=== PATIENT | female | born 1960 | race Two or more races ===

== ENCOUNTER 2021-07-13 15:50 | Outpatient (REF) | payer OTHER, SELFPAY ==
--- NOTE | ~2021-07-13 | XR_ITS ---
EXAMINATION: XR HAND, LEFT CLINICAL INFORMATION: Sprain COMPARISON: None TECHNIQUE: PA, lateral, and oblique views of the left hand. FINDINGS: Bone alignment is normal. No fracture or dislocation is seen. There is arthritis at the DIP joints of the second and third fingers with joint space narrowing and osteophyte formation. Soft tissues are unremarkable. 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
== END 2021-07-13 15:51 | disposition home or self-care (01) ==
LOC: HO.XRAY 15:50
PROVIDERS: PCP Internal Medicine; Visit Provider Internal Medicine
DX: S63.631D Sprain of interphalangeal joint of left index finger, subsequent encounter (principal)
CPT/HCPCS: 73130

== ENCOUNTER 2023-12-17 21:47 | Outpatient (REF) | payer MEDICAID, SELFPAY ==
[2023-12-19 19:53] LABS: C. trachomatis RNA TMA NOT DETECTED (NOT DETECTED); N. gonorrhoeae RNA TMA NOT DETECTED (NOT DETECTED)
== END 2023-12-17 21:48 | disposition home or self-care (01) ==
LOC: HO.HHCLNP 21:47
PROVIDERS: Visit Provider Emergency Medicine
DX: R30.0 Dysuria (principal)
CPT/HCPCS: 36415; 81513; 87086; 87491; 87591

== ENCOUNTER 2024-02-16 12:29 | Outpatient (REF) | payer MEDICAID, SELFPAY ==
[2024-02-16 14:34] LABS: MANUAL DIFF FLAG NO
[2024-02-16 14:43] LABS: Basophils Absolute Auto 0.1 X10*3/uL (0.0-0.2); Basophils Percent Auto 1.6 % (0-2); Eosinophils Absolute Auto 0.2 X10*3/uL (0.0-0.4); Eosinophils Percent Auto 3.1 % (0-4); Hematocrit 43.6 % (37.0-47.0); Hemoglobin 13.9 g/dl (12.0-16.0); Imm Gran Abs Auto 0.01 X10*3/uL (0.00-0.03); Imm Gran Pct Auto 0.2 % (0.0-0.4); Lymphocytes Absolute Auto 3.4 X10*3/uL (1.2-4.9); Lymphocytes Percent Auto 53.8 % (20-40); Mean Corpuscular HGB Conc 31.9 g/dl (31.0-35.0); Mean Corpuscular Hemoglobin 29.2 pg (27.0-33.0); Mean Corpuscular Volume 91.6 fL (80.0-98.0); Mean Platelet Volume 10.6 fL (9.4-12.3); Monocytes Absolute Auto 0.4 X10*3/uL (0.1-1.2); Monocytes Percent Auto 6.4 % (2-11); Neutrophils Absolute Auto 2.2 x10*3/uL (2.0-8.3); Neutrophils Percent Auto 34.9 % (45-73); Platelet Count 264 X10*3/uL (160-400); Red Blood Count 4.76 X10*6/uL (4.20-5.50); Red Cell Distribution Width 14.2 % (11.0-16.0); White Blood Count 6.4 X10*3/uL (4.8-10.8)
[2024-02-16 15:01] LABS: Alanine Aminotransferase 12 U/L (0-31); Albumin Level 4.4 g/dL (3.5-5.0); Alkaline Phosphatase 93 U/L (39-117); Anion Gap 15 (12-20); Aspartate Amino Transferase 20 U/L (5-31); Bilirubin Total 0.3 mg/dL (0.0-1.0); Blood Urea Nitrogen 15 mg/dL (9-16); Calcium 10.2 mg/dL (8.4-10.2); Carbon Dioxide 26 mmol/L (22-29); Chloride 106 mmol/L (96-108); Cholesterol 209 mg/dL (<200); Estimated Glomerular Filt Rate > 60; Glucose Random 83 mg/dL (60-115); HDL Cholesterol 61 mg/dL (>40); LDL Cholesterol Calculated 117 mg/dL (<100); Potassium 4.5 mmol/L (3.3-5.1); Sodium 142 mmol/L (135-145); Total Protein 7.7 g/dL (6.5-8.0); Triglycerides 157 mg/dL (<150)
[2024-02-16 15:19] LABS: TSH reflex Free T4 1.59 uIU/mL (0.32-4.0); Vitamin D 25-OH Total 17.1 ng/mL (>30)
== END 2024-02-16 12:30 | disposition home or self-care (01) ==
LOC: HO.CHCLDS 12:29
PROVIDERS: Visit Provider Internal Medicine
DX: I10 Essential (primary) hypertension (principal)
CPT/HCPCS: 36415; 80053; 80061; 82306; 84443; 85025

== ENCOUNTER 2024-05-23 11:46 | Emergency (ER) | payer MEDICAID, SELFPAY ==
--- NOTE | ~2024-05-23 | XR_ITS ---
EXAMINATION: XR LUMBAR SPINE CLINICAL INFORMATION: Reason for Exam low back pain COMPARISON: None TECHNIQUE: Frontal lateral and coned-down L5-S1 frontal lateral, total of 3 views FINDINGS: Five [id number] lumbar vertebrae were identified maintaining normal height and alignments. Narrowing of intervertebral disc spaces suggest underlying degenerative disc disease. Diffuse bone cortical thinning suggests demineralization, this can be more accurately measured on DEXA exam . Paravertebral soft tissues are unremarkable. There are radiolucencies, most likely superimposed bowel gas.. No radiographic evidence of osteolytic or osteoblastic lesions. XR/XR lumbar spine 2-3V IMPRESSION: No fracture. Narrowing of intervertebral disc spaces suggest underlying degenerative disc disease. . Diffuse bone cortical thinning suggests demineralization, this can be more accurately measured on DEXA exam ..
--- NOTE | 2024-05-23 11:58 | ED.BACK ---
HPI - Back Pain/Injury General Chief Complaint: Back Pain/Injury Stated Complaint: back pain radiating to feet Time Seen by Provider: 05/23/24 13:09 Source: patient and RN notes reviewed Mode of arrival: ambulatory Limitations: no limitations History of Present Illness ED Provider: Robyn Mccullough PA-C HPI Narrative: This is a 63-year-old female who presents emergency department with complaints of low back pain since yesterday. Patient denies any recent trauma or injury. She states that she is a very active person and has a lot of work around the house. She states that the pain worsens with positional changes. She also states that she has had bilateral foot coldness. She denies any urinary or bowel incontinence or retention. No saddle anesthesia. No urinary symptoms. She had a recent urinary tract infection that was treated with an antibiotic. Denies any chest pain, shortness breath, fevers, chills, abdominal pain, nausea, vomiting or diarrhea. No other complaints or concerns at this time. Related Data Previous Rx's ?Medication ?Instructions ?Recorded acetaminophen 500 mg tablet 1,000 mg (2 x 500 mg) PO Q8H PRN 05/23/24 (Tylenol Extra Strength) pain #30 tabs lidocaine 5 % topical patch 1 patch topical DAILY #30 ea 05/23/24 (Lidoderm) Allergies Allergy/AdvReac Type Severity Reaction Status Date / Time No Known Allergies Allergy Mild NONE Verified 05/23/24 12:11 Review of Systems Review of Systems: Yes all other systems are reviewed and are negative Constitutional: Constitutional: Reports as per [facility] Past Medical History Attestation statement: The following information was validated with the patient. Social History Social History Unable to assess alcohol history related to: Unknown Smoked in Last 30 Days: No Use of substances other than those prescribed or required for medical reasons: Unknown Advance Directives: No Advance Directives Information Provided: Yes Do you have a plan to hurt others: No Plan Patient : No Physical Exam Vital Signs: Vital Signs: Last Vital Signs Temp 98.3 F 05/23/24 12:08 Pulse 70 05/23/24 12:08 Resp 16 05/23/24 12:08 BP 146/90 H 05/23/24 12:08 Pulse Ox 98 05/23/24 12:08 O2 Del Method Room Air 05/23/24 12:08 BMI result Body Mass Index 20.2 Const: General: cooperative, comfortable and no acute distress Orientation/consciousness: patient oriented x3 Limitations: no limitations HEENT: Head: Yes normal to inspection, Yes normocephalic and Yes atraumatic Ears: hearing grossly normal bilaterally General nose exam: Normal external nose present Face and sinus: Yes normal facial exam Mouth: Normal oral and palatal mucosa present, oropharynx normal and moist mucous membranes Throat: Yes posterior oropharynx normal Eyes: General: appearance normal, both eyes and all related structures Eyelids: Yes eyelids normal Conjunctivae: conjunctivae normal Sclerae: sclerae normal Pupils: Equal, round and reactive pupils present EOM: EOMs intact bilaterally Neck: Neck: Yes normal visual inspection, Yes full ROM and Yes no lymphadenopathy Lymphatic: no lymphadenopathy noted Chest: Chest palpation & inspection: normal inspection of the chest Resp: Effort & Inspection: normal respiratory effort and able to speak in complete sentences Auscultation: clear to auscultation bilaterally, no crackles, no rales, no rhonchi and no wheezes Cardio: Rate: regular rate Rhythm: regular rhythm Heart sounds: S1 normal heart sound present and S2 normal heart sound present GI: Inspection: Yes normal to inspection : General: Yes no CVA tenderness Back/Spine/Pelvis: Other: No midline spine tenderness, no paraspinous muscle tenderness. DTRs are 2+, distal sensation circulation intact. Bilateral feet are slightly chilled bilaterally, however she has good capillary refill, less than 2 seconds, sensation intact, DP pulse, popliteal pulse, and femoral pulses are strong, equal bilaterally. No calf tenderness Back: no CVA tenderness Skin: General skin exam: no rashes or lesions noted Trauma: no lacerations or abrasions Wounds: no wounds Neuro: General: patient oriented x3 and moves all extremities Cranial nerves: Yes Equal, round and reactive pupils present Extrem: General: Yes normal to inspection Right upper extremity: normal to inspection Left upper extremity: normal to inspection Right lower extremity: normal to inspection Left lower extremity: normal to inspection Course Course Course Narrative: This is a Rapid Medical Exam performed in triage by Magalie Brown PA-C. Full HPI, ROS and PE to be performed by primary ED provider. 63 year-old F w/ no sig PMHx presenting to the ED c/o right sided low back pain and cold feet x yesterday, worsening today. denies injury/fall, urinary sx. PE: +R lumbar MSK ttp. distal pulses intact/ ambulating w/steady gait Plan: UA, XR Medical Decision Making Medical Decision Making [facility] Narrative: This is a 63-year-old female who presents emergency department with complaints of back pain. On arrival, blood pressure mildly elevated at 140 6/90, all other vital signs within normal limits. Lumbar spine nontender, she is ambulatory with steady gait. This patient presents with back pain most consistent with lumbago. Differential diagnoses includes lumbago versus musculoskeletal spasm / strain versus sciatica.No back pain red flags on history or physical. Presentation not consistent with malignancy (lack of history of malignancy, lack of B symptoms), fracture (no trauma, no bony tenderness to palpation), cauda equina syndrome (no bowel or urinary incontinence/retention, no saddle anesthesia, no distal weakness), pyelonephritis (afebrile, no CVAT, no urinary symptoms). X-ray showing underlying degenerative disc disease as well as the mineralization, I discussed this finding with patient and [id number] at bedside, they were follow-up with PCP. She has good pulses, bilateral sensation, and capillary refills intact. Discussed strict return precautions. She understands agrees with plan. Patient stable for discharge. Differential Diagnosis Differential Diagnoses: The differential diagnosis associated with the presentation includes See above Lab Data [facility] Lab Attestation statement: I reviewed the patient's lab results. Labs: Lab Results 05/23/24 Range/Units 13:10 Urine Color Dark Yellow Urine Appearance Clear Urine pH 5.5 (5.0-9.0) Ur Specific [place] >= 1.030 H (1.005-1.025) Urine Protein Trace (Neg-Trace) mg/dL Urine Glucose (UA) Negative (Negative) mg/dL Urine Ketones Trace (Negative) mg/dL Urine Blood Negative (Negative) Urine Nitrite Negative (Negative) Ur Leukocyte Esterase Negative (Negative) Radiology Impression Discussion of test interpretation with radiology: I have reviewed the radiologist's reading. Radiologist Impression: EXAMINATION: XR LUMBAR SPINE CLINICAL INFORMATION: Reason for Exam low back pain COMPARISON: None TECHNIQUE: Frontal lateral and coned-down L5-S1 frontal lateral, total of 3 views FINDINGS: Five [id number] lumbar vertebrae were identified maintaining normal height and alignments. Narrowing of intervertebral disc spaces suggest underlying degenerative disc disease. Diffuse bone cortical thinning suggests demineralization, this can be more accurately measured on DEXA exam . Paravertebral soft tissues are unremarkable. There are radiolucencies, most likely superimposed bowel gas.. No radiographic evidence of osteolytic or osteoblastic lesions. XR/XR lumbar spine 2-3V IMPRESSION: No fracture. Narrowing of intervertebral disc spaces suggest underlying degenerative disc disease. . Diffuse bone cortical thinning suggests demineralization, this can be more accurately measured on DEXA exam .. Dictated By: Juan David Valdez MD Discharge Plan Discharge Clinical Impression: Back pain, Degenerative disc disease, lumbar Patient Disposition: Home, Self-Care Instructions: Back Pain (ED) Additional Instructions: You were seen in the emergency department due to back pain. Your x-ray shows degenerative disc disease. This also shows demineralization, I am recommending that you follow-up with your primary care physician as you may need to have a DEXA scan performed for further assessment. Drink plenty of fluids get plenty of rest. You may take Tylenol as needed for pain. You may also use Lidoderm patches. Your urine sample did not show a urinary tract infection. We are sending your urine out for further testing, we will call you if you have any abnormal results. If any new or worsening symptoms occur including but not limited to chest pain, shortness breath, worsening back pain, numbness or tingling, weakness, please return for re-evaluation. Prescriptions: New acetaminophen [Tylenol Extra Strength] 500 mg tablet 1,000 mg PO Q8H PRN (Reason: pain) Qty: 30 0RF lidocaine [Lidoderm] 5 % adhesive patch,medicated 1 patch topical DAILY Qty: 30 0RF Rx Instructions: leave on most painful area for up to 12 hrs Print Language: Frisian
[2024-05-23 12:08] VITALS: BP 146/90; PULSE 70; RESP 16; TEMP 36.8; O2SAT 98; BMI 20.2
[2024-05-23 13:18] LABS: Appearance Urine Clear; Color Urine Dark Yellow; Glucose Urine UA Negative (Negative); Leukocyte Esterase Urine Negative (Negative); Nitrite Urine Negative (Negative); PH 5.5 (5.0-9.0); Specific Gravity - Urine >= 1.030 (1.005-1.025); Urine Blood Negative (Negative); Urine Ketones Trace mg/dL (Negative); Urine Protein Trace mg/dL (Neg-Trace)
[2024-05-23 14:41] VITALS: BP 159/88; PULSE 57; RESP 16; TEMP 36.5; O2SAT 100
== END 2024-05-23 14:43 | disposition home or self-care (01) ==
PROVIDERS: Physician Assistant; Emergency Provider Emergency Medicine; PCP Internal Medicine
DX: M51.36 Other intervertebral disc degeneration, lumbar region (principal); R03.0 Elevated blood-pressure reading, without diagnosis of hypertension
CPT/HCPCS: 72100; 81003; 99283; 99284

== ENCOUNTER 2024-06-18 09:00 | Outpatient (REF) | payer MEDICAID, SELFPAY ==
--- NOTE | ~2024-06-18 | MM_ITS ---
EXAMINATION: BONE DENSITOMETRY CLINICAL INDICATION: Osteoporosis. COMPARISON: This is the patient's baseline examination. TECHNIQUE: Using a [employer] DXA System (software version: 13.1) manufactured by [employer], dual-energy x-ray absorptiometry was performed of the lumbar spine and left hip. The images are of good technical quality. Summary results are attached. FINDINGS: LEFT FEMUR, NECK: BMD 0.724 g/cm2, Z-score -0.5, T-score -2.3, osteopenia. LEFT FEMUR, TOTAL: BMD 0.688 g/cm2, Z-score -1.1, T-score -2.5, osteoporosis. AP SPINE L1-L4: BMD 0.679 g/cm2, Z-score -2.2, T-score -4.2, osteoporosis. IDENTIFIED RISK FACTORS: Menopause, low calcium intake, history of fracture (adult), recurrent falls, tobacco use (current smoker). HISTORY OF FRACTURE: Other. MEDICATIONS: Calcium. MM/XR DEXA axial skeleton IMPRESSION: 1. DIAGNOSIS: Osteoporosis based on the lowest T-score value of -4.2 in the lumbar spine applying World Health Organization criteria. 2. 10-YEAR FRACTURE RISK PREDICTION, FRAX: According to the guidelines, FRAX calculation should only be performed on patients in the osteopenia bone density category. Therefore, FRAX was not performed on this patient. 3. Treatment Recommendations: NOF guidelines recommend consideration for treatment in postmenopausal women and men age 50 and older presenting with the following: -A hip or vertebral (clinical or morphometric) fracture. -T-score less than or equal to -2.5 at the femoral neck or spine after appropriate evaluation to exclude secondary causes. -Low bone mass at the hip or spine and a 10-year fracture probability by FRAX of greater than or equal to 3% for hip fracture or greater than or equal to 20% for major osteoporotic fracture based on the [place] adapted WHO algorithm. 4. Other Recommendations: All treatment decisions require clinical judgment and consideration of individual patient factors, including patient preferences, comorbidities, previous drug use, risk factors not captured in the FRAX model (e.g. frailty, falls, vitamin D deficiency, increased bone turnover, interval significant decline in bone density) and possible under or overestimation of fracture risk by FRAX. Additional medical evaluation for secondary cause of low bone mineral density may be appropriate. FUTURE SCAN RECOMMENDATION: People with diagnosed cases of osteoporosis or at high risk for fracture should have regular bone mineral density tests. For patients eligible for Medicare, routine testing is allowed once every 2 years. The testing frequency can be increased to one year for patients who have rapidly progressing disease, those who are receiving or discontinuing medical therapy to restore bone mass, or have additional risk factors. Electronically signed by: Jorge Luis Blanchard MD 06/23/2024 08:18 AM EDT
== END 2024-06-18 09:01 | disposition home or self-care (01) ==
LOC: HO.MAMMO 09:00
PROVIDERS: PCP Family Medicine; Visit Provider Family Medicine
DX: Z13.820 Encounter for screening for osteoporosis (principal); M85.80 Other specified disorders of bone density and structure, unspecified site; Z78.0 Asymptomatic menopausal state
CPT/HCPCS: 77080

== ENCOUNTER 2024-06-28 10:41 | Emergency (ER) | payer MEDICAID, SELFPAY ==
[2024-06-28 10:50] VITALS: BP 133/77; PULSE 67; RESP 18; TEMP 36.6; O2SAT 100; BMI 19.6
--- NOTE | 2024-06-29 11:54 | PC.NURSE ---
Call made to patient for follow up LWBS. Patient has been instructed to return if continuing to have weakness and pain per Poison Control. Patient states that she feels better than yesterday and has been in contact with her PCP. She will follow up with them and has been instructed to resume her medication on 07/03.
== END 2024-06-28 16:47 | disposition left against medical advice (07) ==
LOC: HO.ED 16:43
PROVIDERS: Emergency Provider Emergency Medicine; PCP Family Medicine
DX: R53.1 Weakness (principal); Z53.21 Procedure and treatment not carried out due to patient leaving prior to being seen by health care provider
CPT/HCPCS: 99281

== ENCOUNTER 2024-07-06 12:18 | Emergency (ER) | payer MEDICAID, SELFPAY ==
--- NOTE | ~2024-07-06 | US_ITS ---
EXAMINATION: US TRIPLEX LOWER EXTREMITY, RIGHT CLINICAL INFORMATION: right thigh pain COMPARISON: None available. TECHNIQUE: Color-flow triplex imaging with spectral analysis and compression Doppler were performed on the right lower extremity. FINDINGS: Respiratory variation, normal compression and augmented flow are noted throughout the right lower extremity. The visualized common femoral vein, superficial femoral vein, profunda femoral vein, popliteal vein and midcalf peroneal and posterior tibial venous segments show no evidence of deep venous thrombosis. There is no Crane's cyst. US/US venous duplex LE RT IMPRESSION: No evidence of deep venous thrombosis involving the right lower extremity. Electronically signed by: Dave Leach MD 07/06/2024 07:32 PM EDT
--- NOTE | ~2024-07-06 | XR_ITS ---
EXAMINATION: XR HIP, RIGHT CLINICAL INFORMATION: Right hip pain for 3 days. COMPARISON: None available. TECHNIQUE: Two views of the right hip and frontal view of the pelvis. FINDINGS: No fracture appreciated. Alignment is anatomic. Question mild joint space narrowing. Amorphous calcification projects lateral to the upper acetabulum, raising the possibility of calcific bursitis versus calcific tendinitis. XR/XR hip RT w PEL1V IMPRESSION: Findings as above. Electronically signed by: Wilfredo Maldonado MD 07/06/2024 01:56 PM EDT RP
[2024-07-06 12:22] VITALS: BP 163/85; PULSE 79; RESP 16; TEMP 36.5; O2SAT 100
--- NOTE | 2024-07-06 12:22 | ED.GENADULT ---
HPI - General Adult General Chief complaint: General Medical Stated complaint: Pain R side Time Seen by Provider: 07/06/24 16:28 Source: patient Mode of arrival: ambulatory Limitations: no limitations History of Present Illness ED Provider: Sudhakar Funes HPI narrative: 63 yold female with pmh of high cholesterol and osteopeorosis presents to the ED right hip pain for two days without any trauma. Patient patient states right hip pain is worse on movement. Patient denies any leg swelling or calf pain. Patient denies any chest pain or shortness of breath. Patient admits to hip pain referred to anterior thigh pain. Patient denies any dysuria or hematuria. Patient states no flank pain nausea or vomiting. Related Data Previous Rx's ?Medication ?Instructions ?Recorded acetaminophen 500 mg tablet 1,000 mg (2 x 500 mg) PO Q8H PRN 05/23/24 (Tylenol Extra Strength) pain #30 tabs lidocaine 5 % topical patch 1 patch topical DAILY #30 ea 05/23/24 (Lidoderm) prednisone 20 mg tablet 40 mg (2 x 20 mg) PO DAILY 5 days 07/06/24 #10 tabs tramadol 50 mg tablet 50 mg PO Q8H PRN pain 3 days #9 07/06/24 tabs Allergies Allergy/AdvReac Type Severity Reaction Status Date / Time No Known Allergies Allergy Mild NONE Verified 07/06/24 12:25 Review of Systems Review of Systems: Right hip pain Yes all other systems are reviewed and are negative [facility] Social History Social History Unable to assess alcohol history related to: Unknown Advance Directives: No Advance Directives Information Provided: No Physical Exam ED Vital Signs: Vital Signs - 24 hr 07/06/24 12:22 07/06/24 17:35 07/06/24 19:19 Temperature 97.7 F 97.5 F 98.3 F Pulse Rate 79 70 66 Respiratory Rate 16 16 16 Blood Pressure 163/85 H 125/81 109/68 Pulse Oximetry 100 99 100 Oxygen Delivery Method Room Air Room Air Room Air 07/06/24 20:17 Temperature 98.3 F Pulse Rate 66 Respiratory Rate 16 Blood Pressure 109/68 Pulse Oximetry 100 Oxygen Delivery Method Room Air BMI result Body Mass Index 20.0 Const General: cooperative, healthy appearing, comfortable, no acute distress, well developed, alert, awake and Physically active Orientation/consciousness: patient oriented x3 [facility] Head: Yes normal to inspection, Yes No palpable skull fracture present, Yes normocephalic, Yes atraumatic and No abrasion Eyes General: appearance normal, both eyes and all related structures Neck Neck: Yes normal visual inspection, Yes full ROM, Yes no lymphadenopathy, Yes no meningeal signs, Yes trachea midline, Yes supple, No anterior neck swelling and No tender Chest Chest palpation & inspection: normal inspection of the chest and normal palpation of entire chest wall Resp Effort & Inspection: normal respiratory effort and able to speak in complete sentences Auscultation: clear to auscultation bilaterally Cardio Jugular venous distension: no JVD Heart sounds: S1 normal heart sound present and S2 normal heart sound present GI Inspection: Yes normal to inspection Palpation (GI): Soft to palpation, not firm, nontender, no guarding and not rigid General: Yes no CVA tenderness Back/Spine/Pelvis Back: no CVA tenderness and No back tenderness Skin General skin exam: no rashes or lesions noted, elasticity normal and turgor normal Neuro General: patient oriented x3, gait normal, tone normal, moves all extremities, Normal light touch and pain sensation, no meningeal signs, no focal motor deficits, CN's II-XI intact bilaterally and normal sensation to monofilament Extrem General: Yes normal to inspection and Yes full ROM Upper/lower leg/hip images: 1. Positive for tenderness on palpation. Negative for crepitus, ecchymosis, deformity, palpable cords, or erythema. Femoral pulses intact. Pedal pulses intact. Motor/neuro/vascular exam intact. Right hip pain worse on movement. Psych Appearance: grossly normal, well kempt and not disheveled Course Course Course Narrative: RME, this is a rapid medical exam performed by Candelario Rodney please refer to primary provider for complete H&P- 63 year old female who reports a recent diagnosis of osteoporosis presents for evaluation of right hip pain that radiates into her right upper leg. Plan for x-ray Medications Administered Discontinued Medications Generic Name Dose Route Start Last Admin Trade Name Freq PRN Reason Stop Dose Admin Prednisone 60 mg 07/06/24 19:41 07/06/24 19:52 Prednisone 20 Mg Tablet PO 07/06/24 19:42 Not Given ONCE ONE Prednisone 60 mg 07/06/24 19:58 07/06/24 19:59 Prednisone 20 Mg Tablet PO 07/06/24 19:59 60 mg ONCE ONE Administration Tramadol HCl 50 mg 07/06/24 19:41 07/06/24 19:53 Tramadol Hcl 50 Mg Tablet PO 07/06/24 19:42 Not Given ONCE ONE Tramadol HCl 50 mg 07/06/24 19:58 07/06/24 19:59 Tramadol Hcl 50 Mg Tablet PO 07/06/24 19:59 50 mg ONCE ONE Administration Medical Decision Making Medical Decision Making MDM Narrative: 63-year-old presents to ED for right hip pain without any trauma. X-ray shows right calcific bursitis versus tendinitis which could explain the patient's. Patient does states family history of blood clots so was sent patient to ultrasound to rule out DVT. 7:34pm: Ultrasound normal. Patient can be discharged as calcific bursitis. Patient was discharged with pain meds and steroids. Not suspecting arterial occlusion, compartment sydrome, cellulitits, disclocation, osteomyelitits, or septic joint. patient explained worrisome signs and informed to return to the ED if he she has them. Differential Diagnosis Differential Diagnoses: The differential diagnosis associated with the presentation includes (Hip fracture, DVT, arthritis) Admission/Observation Consideration of admission/observation: Escalation of care including admission/observation considered Independent Interpretation I performed an independent interpretation of an: Plain X-Ray and Ultrasound Radiology Impression Discussion of test interpretation with radiology: I have reviewed the radiologist's reading. Independent Historian Clinical information obtained from an independent historian. History obtained from or confirmed by: Other (patient) External Record Review External record reviewed: Other (Prior vistis) Prescription Management I considered prescription management with: Pain Medication Discharge Plan Discharge Clinical Impression: Bursitis, hip Patient Disposition: Home, Self-Care Instructions: Hip Bursitis (ED) Additional Instructions: Recommend follow-up with your primary care provider. You will need to be referred to physical therapy and orthopedics. If no improvement you may need an MRI. Return to the ED immediately for any right lower extremity swelling, severe hip pain, dysuria, hematuria, flank pain, nausea, vomiting, weakness/tingling in lower extremities, inability to walk, or any other concerning symptoms. FINDINGS: No fracture appreciated. Alignment is anatomic. Question mild joint space narrowing. Amorphous calcification projects lateral to the upper acetabulum, raising the possibility of calcific bursitis versus calcific tendinitis. XR/XR hip RT w PEL1V IMPRESSION: Findings as above. Prescriptions: New prednisone 20 mg tablet 40 mg PO DAILY 5 Days Qty: 10 0RF tramadol 50 mg tablet 50 mg PO Q8H PRN (Reason: pain) 3 Days Qty: 9 0RF No Action acetaminophen [Tylenol Extra Strength] 500 mg tablet 1,000 mg PO Q8H PRN (Reason: pain) Qty: 30 0RF lidocaine [Lidoderm] 5 % adhesive patch,medicated 1 patch topical DAILY Qty: 30 0RF Rx Instructions: leave on most painful area for up to 12 hrs Interventions: ED Discharge Assessment Last Done: 07/06/24 20:17 Discharge Date/Time: 07/06/24 20:17 Print Language: Arabic
[2024-07-06 17:35] VITALS: BP 125/81; PULSE 70; RESP 16; TEMP 36.4; O2SAT 99
[2024-07-06 19:19] VITALS: BP 109/68; PULSE 66; RESP 16; TEMP 36.8; O2SAT 100
[2024-07-06] MEDS: traMADoL HCL 50 MG TABLET PO (19:59)
[2024-07-06] MEDS: predniSONE 20 MG TABLET 60 MG PO (19:59)
[2024-07-06 20:17] VITALS: BP 109/68; PULSE 66; RESP 16; TEMP 36.8; O2SAT 100
== END 2024-07-06 20:17 | disposition home or self-care (01) ==
PROVIDERS: Emergency Provider Internal Medicine; PCP Internal Medicine
DX: M70.71 Other bursitis of hip, right hip (principal); Y93.9 Activity, unspecified; M25.551 Pain in right hip
CPT/HCPCS: 73502; 93971; 99283; 99284

== ENCOUNTER 2024-08-20 08:10 | Outpatient (REF) | payer MEDICAID, SELFPAY ==
[2024-08-23 19:39] LABS: TS Negative Control Passed; TS Panel A 1; TS Panel B 0; TS Positive Control Passed; TSpotTB Negative (Negative)
== END 2024-08-20 08:11 | disposition home or self-care (01) ==
LOC: HO.CHCLDS 08:10
PROVIDERS: Visit Provider Internal Medicine
DX: Z11.1 Encounter for screening for respiratory tuberculosis (principal)
CPT/HCPCS: 36415; 86481